=== PATIENT | female | born 1970 | race Caucasian/White ===

== ENCOUNTER 2016-07-06 08:13 | Emergency (ER) | payer MEDICARE ==
[~2016-07-06] VITALS: Ht 167.6 cm; Wt 98.0 kg
[~2016-07-06 08:13] MED LIST: FLEXERIL10 MG OR; LORTAB 7.5 OR; PAXIL10 MG OR
[2016-07-06 08:40] VITALS: BP 153/79
[2016-07-06] MEDS ORDERED: BACTRIM DS1 TAB PO (08:41)
== END 2016-07-06 08:50 | disposition home or self-care (01) ==
LOC: ED 08:13
PROC: 0H91XZZ Drainage of Face Skin, External Approach (ICD-10-PCS; principal; 2016-07-06)
DX: L02.01 Cutaneous abscess of face (principal)

== ENCOUNTER 2016-07-07 10:53 | Emergency (ER) | payer MEDICARE ==
[~2016-07-07] VITALS: Ht 167.6 cm; Wt 95.0 kg
[~2016-07-07 10:53] MED LIST changes: +BACTRIM DS1 TAB PO
[2016-07-07 12:04] VITALS: BP 141/80
== END 2016-07-07 12:04 | disposition home or self-care (01) ==
LOC: ED 10:53
PROC: 0H91XZZ Drainage of Face Skin, External Approach (ICD-10-PCS; principal; 2016-07-07)
DX: L02.01 Cutaneous abscess of face (principal)

== ENCOUNTER 2016-08-16 11:12 | Emergency (ER) | payer MEDICARE ==
[~2016-08-16] VITALS: Ht 167.6 cm; Wt 90.9 kg
[2016-08-16] MEDS ORDERED: NEURONTIN300 MG PO (11:26)
[2016-08-16] MEDS ORDERED: FLEXERIL PO (11:26)
[2016-08-16] MEDS ORDERED: TRAMADOL HCL50 MG PO (11:26)
[2016-08-16] MEDS ORDERED: TRAMADOL HYDROC50 MG PO (11:42)
[2016-08-16] MEDS ORDERED: BACTRIM DS1 TAB PO (11:42)
[2016-08-16 12:11] VITALS: BP 121/71
== END 2016-08-16 12:21 | disposition home or self-care (01) ==
LOC: ED 11:12
PROC: 0H97XZZ Drainage of Abdomen Skin, External Approach (ICD-10-PCS; principal; 2016-08-16)
PROC: 0H96XZZ Drainage of Back Skin, External Approach (ICD-10-PCS; 2016-08-16)
DX: L02.211 Cutaneous abscess of abdominal wall (principal); L02.212 Cutaneous abscess of back [any part, except buttock and flank]; F17.210 Nicotine dependence, cigarettes, uncomplicated; Z86.14 Personal history of Methicillin resistant Staphylococcus aureus infection

== ENCOUNTER 2016-10-31 13:58 | Emergency (ER) | payer MEDICARE ==
[~2016-10-31] VITALS: Ht 167.6 cm; Wt 70.0 kg
[~2016-10-31 13:58] MED LIST changes: +FLEXERIL PO; +NEURONTIN300 MG PO; +TRAMADOL HCL50 MG PO; +TRAMADOL HYDROC50 MG PO
[2016-10-31] MEDS ORDERED: TRAMADOL HYDROC50 MG PO (14:21)
[2016-10-31] MEDS ORDERED: FLEXERIL PO (14:21)
[2016-10-31] MEDS ORDERED: NEURONTIN300 MG PO (14:21)
[2016-10-31 15:05] VITALS: BP 166/99
[2016-10-31] MEDS ORDERED: PREDNISONE50 MG PO (16:20)
[2016-11-01] MEDS ORDERED: PERCOCET 5/325M1 TAB PO (05:15)
== END 2016-10-31 16:33 | disposition home or self-care (01) ==
LOC: ED 13:58
DX: G89.29 Other chronic pain (principal); G62.9 Polyneuropathy, unspecified; M25.512 Pain in left shoulder; M25.522 Pain in left elbow; M79.632 Pain in left forearm; F17.210 Nicotine dependence, cigarettes, uncomplicated
CPT/HCPCS: J2060

== ENCOUNTER 2016-11-01 02:55 | Emergency (ER) | payer MEDICARE ==
[~2016-11-01] VITALS: Ht 167.6 cm; Wt 79.5 kg
[~2016-11-01 02:55] MED LIST changes: +PREDNISONE50 MG PO
[2016-11-01] MEDS ORDERED: PERCOCET 5/325M1 TAB PO (05:15)
[2016-11-01 05:45] VITALS: BP 98/61
== END 2016-11-01 05:45 | disposition home or self-care (01) ==
LOC: ED 02:55
DX: M54.12 Radiculopathy, cervical region (principal); M79.602 Pain in left arm

== ENCOUNTER 2017-01-10 19:06 | Emergency (ER) | payer MEDICARE ==
[~2017-01-10] VITALS: Ht 167.6 cm; Wt 83.2 kg
[~2017-01-10 19:06] MED LIST changes: +PERCOCET 5/325M1 TAB PO
[2017-01-10] MEDS ORDERED: LYRICA25 MG PO (19:36)
[2017-01-10] MEDS ORDERED: BACTRIM DS1 TAB PO (20:21)
[2017-01-10 20:41] VITALS: BP 110/66
== END 2017-01-10 20:58 | disposition home or self-care (01) ==
LOC: ED 19:06
PROC: 0H9DXZZ Drainage of Right Lower Arm Skin, External Approach (ICD-10-PCS; principal; 2017-01-10)
DX: L02.413 Cutaneous abscess of right upper limb (principal); G62.9 Polyneuropathy, unspecified; F17.210 Nicotine dependence, cigarettes, uncomplicated; B95.7 Other staphylococcus as the cause of diseases classified elsewhere

== ENCOUNTER 2017-01-11 21:15 | Emergency (ER) | payer MEDICARE ==
[~2017-01-11] VITALS: Ht 167.6 cm; Wt 83.6 kg
[~2017-01-11 21:15] MED LIST changes: +LYRICA25 MG PO
[2017-01-11 21:58] VITALS: BP 111/60
== END 2017-01-11 21:57 | disposition home or self-care (01) ==
LOC: ED 21:15
DX: L02.415 Cutaneous abscess of right lower limb (principal); F17.210 Nicotine dependence, cigarettes, uncomplicated; G62.9 Polyneuropathy, unspecified; Z86.14 Personal history of Methicillin resistant Staphylococcus aureus infection

== ENCOUNTER 2018-04-22 16:37 | Emergency (ER) | payer MEDICARE ==
[~2018-04-22] VITALS: Ht 167.6 cm; Wt 79.5 kg
[2018-04-22] MEDS ORDERED: TRAMADOL HCL E100 M2 PO (16:50)
[2018-04-22] MEDS ORDERED: MELOXICAM7.5 MG PO (16:51)
[2018-04-22] MEDS ORDERED: CYCLOBENZAPR5 MG PO (16:51)
[2018-04-22] MEDS ORDERED: CLINDAMYCIN300 M1 PO (17:31)
[2018-04-22] MEDS ORDERED: BACTROBAN TOP (17:31)
[2018-04-22 17:47] VITALS: BP 151/90
== END 2018-04-22 17:47 | disposition home or self-care (01) ==
LOC: ED 16:37
DX: L02.01 Cutaneous abscess of face (principal)

== ENCOUNTER 2018-04-23 00:06 | Emergency (ER) | payer MEDICARE ==
[~2018-04-23] VITALS: Ht 167.6 cm; Wt 80.0 kg
[~2018-04-23 00:06] MED LIST changes: +BACTROBAN TOP; +CLINDAMYCIN300 M1 PO; +CYCLOBENZAPR5 MG PO; +MELOXICAM7.5 MG PO; +TRAMADOL HCL E100 M2 PO
[2018-04-23 01:34] LABS: HEMATOCRIT 40.4 % (37.0-47.0); HEMOGLOBIN 13.3 g/dl (12.0-16.0); IMMATURE GRANULOCYTES 0.4 % (0.0-5.0); MEAN CELL VOLUME 85.6 fL CALC (80.0-100.0); MEAN CORPUSCULAR HGB 28.2 pG CALC (26.0-32.0); MEAN CORPUSCULAR HGB CONC 32.9 g/L CALC (32.0-36.0); NEUT# 7.74 thou/uL (2.00-7.15); RED BLOOD COUNT 4.72 mill/uL (4.20-5.60); RED CELL DISTRI WIDTH 14.2 % (11.5-15.5)
[2018-04-23 01:54] LABS: ALBUMIN 3.9 g/dL (3.2-5.0); ALKALINE PHOSPHATASE 57 u/l (38-126); ANION GAP 14 (6-22 (CALC)); BILIRUBIN, TOTAL 0.5 mg/dL (0.0-1.4); BUN 20 mg/dL (7-17); BUN/CREATININE RATIO 37 (12-20 (CALC)); CARBON DIOXIDE 25 mmol/l (22-30); CHLORIDE 101 mmol/l (95-108); CREATININE 0.5 mg/dL (0.5-1.0); GFR > 60 ML/MIN (>=60 (CALC)); GFR FOR AFR.AMER. > 60 ML/MIN (>=60 (CALC)); SGOT/AST 42 u/l (14-36); SODIUM 137 mmol/l (137-146); TOTAL PROTEIN 7.2 g/dL (6.3-8.2)
[2018-04-23 03:50] VITALS: BP 124/74
== END 2018-04-23 03:50 | disposition left against medical advice (07) ==
LOC: ED 00:06
PROVIDERS: Emergency Medicine
DX: L03.211 Cellulitis of face (principal); K11.20 Sialoadenitis, unspecified; D72.829 Elevated white blood cell count, unspecified; F17.210 Nicotine dependence, cigarettes, uncomplicated

== ENCOUNTER 2020-03-04 07:08 | Emergency (ER) | payer MEDICARE ==
[~2020-03-04] VITALS: Ht 167.6 cm; Wt 100.0 kg
[~2020-03-04 07:08] MED LIST changes: -CYCLOBENZAPR5 MG PO; +CYCLOBENZAPRINE10 MG PO
[2020-03-04] MEDS ORDERED: WELLBUTRIN XL300 MG PO (07:44)
[2020-03-04] MEDS ORDERED: NABUMETONE500 MG PO (07:45)
[2020-03-04] MEDS ORDERED: KEFLEX500 MG PO (07:49)
[2020-03-04] MEDS ORDERED: FAMCICLOVIR500 MG PO (07:49)
[2020-03-04 08:07] VITALS: BP 128/79
== END 2020-03-04 08:24 | disposition home or self-care (01) ==
LOC: ED 07:08
DX: B02.9 Zoster without complications (principal); G62.9 Polyneuropathy, unspecified; F17.200 Nicotine dependence, unspecified, uncomplicated

== ENCOUNTER 2021-02-16 07:19 | Day surgery (SDC) | payer MEDICARE ==
[~2021-02-16 07:19] MED LIST changes: +BUSPIRONE10 MG PO; +D350 MCG; +FAMCICLOVIR500 MG PO; +FLUOXETINE10 MG PO; +KEFLEX500 MG PO; +MULTI 50+ PO; +NABUMETONE500 MG PO; +PROBIOTI2; +WELLBUTRIN XL300 MG PO; +XANAX0.25 MG PO
[2021-02-16 09:38] VITALS: BP 124/83
== END 2021-02-16 09:50 | disposition home or self-care (01) ==
LOC: ENDO 07:19
PROVIDERS: ATTEND Surgery
PROC: 0DJD8ZZ Inspection of Lower Intestinal Tract, Via Natural or Artificial Opening Endoscopic (ICD-10-PCS; principal; 2021-02-16)
DX: Z12.11 Encounter for screening for malignant neoplasm of colon (principal); K57.30 Diverticulosis of large intestine without perforation or abscess without bleeding; F17.210 Nicotine dependence, cigarettes, uncomplicated

== ENCOUNTER 2023-05-19 16:47 | Emergency (ER) | payer MEDICARE, MEDICAID ==
[~2023-05-19] VITALS: Ht 165.1 cm; Wt 99.7 kg
[2023-05-19 16:57] VITALS: BP 129/71
[2023-05-19 17:01] VITALS: BP 112/91
[2023-05-19 17:15] VITALS: BP 120/74
[2023-05-19 17:25] LABS: BASO% 0.2 % (0-3); EOS% 1.9 % (0-8); HEMOGLOBIN 12.2 g/dl (12.0-16.0); IMMATURE GRANULOCYTES 0.2 % (0.0-5.0); LYMPH% 26.9 % (15-41); MEAN CELL VOLUME 85.4 fL CALC (80.0-100.0); MEAN CORPUSCULAR HGB 27.4 pG CALC (26.0-32.0); MEAN CORPUSCULAR HGB CONC 32.1 g/dL CAL (32.0-36.0); MONO% 8.2 % (2-13); NEUT# 7.74 thou/uL (2.00-7.15); NEUT% 62.6 % (42-76); RED BLOOD COUNT 4.45 mill/uL (4.20-5.60); RED CELL DISTRI WIDTH 13.1 % (11.5-15.5)
[2023-05-19 17:30] VITALS: BP 101/67
[2023-05-19 17:34] LABS: ALBUMIN 4.1 g/dL (3.2-5.0); ALKALINE PHOSPHATASE 79 u/l (38-126); ANION GAP 12 (6-22 (CALC)); BILIRUBIN, TOTAL 0.3 mg/dL (0.02-1.3); BUN 14 mg/dL (7-17); BUN/CREATININE RATIO 25 (12-20 (CALC)); CARBON DIOXIDE 25 mmol/l (22-30); CHLORIDE 106 mmol/l (95-108); CREATININE 0.6 mg/dL (0.5-1.0); GFR FOR AFR.AMER. > 60 ML/MIN (>=60 (CALC)); GFR OTHER RACES > 60 ML/MIN (>=60 (CALC)); POTASSIUM 3.7 mmol/l (3.5-5.1); SGOT/AST 31 u/l (14-36); SODIUM 139 mmol/l (137-146); TOTAL PROTEIN 7.1 g/dL (6.3-8.2)
[2023-05-19 20:36] VITALS: BP 120/74
[2023-05-19] MEDS ORDERED: CLINDAMYCIN300 M1 PO ×2 (20:38→21:21)
[2023-05-19] MEDS ORDERED: MUPIROCIN21 TOP ×2 (20:38→21:21)
[2023-05-21] MEDS ORDERED: BACTRIM DS1 TAB PO (17:50)
[2023-05-21] MEDS ORDERED: AMOX/K CLAV875 M1 PO (17:50)
== END 2023-05-20 01:41 | disposition home or self-care (01) ==
LOC: ED 16:47
PROVIDERS: Emergency Medicine
DX: L03.213 Periorbital cellulitis (principal); M06.9 Rheumatoid arthritis, unspecified; M50.30 Other cervical disc degeneration, unspecified cervical region; F17.200 Nicotine dependence, unspecified, uncomplicated; Z86.14 Personal history of Methicillin resistant Staphylococcus aureus infection

== ENCOUNTER 2023-05-21 13:45 | Emergency (ER) | payer MEDICARE, MEDICAID ==
[~2023-05-21] VITALS: Ht 165.1 cm; Wt 99.0 kg
[2023-05-21] VITALS (23 sets, daily range): BP systolic 74–133; BP diastolic 44–79
[~2023-05-21 13:45] MED LIST changes: +MUPIROCIN21 TOP
[2023-05-21 15:03] LABS: BASO% 0.3 % (0-3); EOS% 1.3 % (0-8); HEMOGLOBIN 12.1 g/dl (12.0-16.0); IMMATURE GRANULOCYTES 0.2 % (0.0-5.0); LYMPH% 29.4 % (15-41); MEAN CELL VOLUME 86.2 fL CALC (80.0-100.0); MEAN CORPUSCULAR HGB 27.4 pG CALC (26.0-32.0); MEAN CORPUSCULAR HGB CONC 31.8 g/dL CAL (32.0-36.0); MONO% 9.2 % (2-13); NEUT# 8.07 thou/uL (2.00-7.15); NEUT% 59.6 % (42-76); RED BLOOD COUNT 4.41 mill/uL (4.20-5.60); RED CELL DISTRI WIDTH 13.5 % (11.5-15.5)
[2023-05-21 15:23] LABS: ALBUMIN 3.9 g/dL (3.2-5.0); ALKALINE PHOSPHATASE 59 u/l (38-126); ANION GAP 11 (6-22 (CALC)); BILIRUBIN, TOTAL 0.4 mg/dL (0.02-1.3); BUN 9 mg/dL (7-17); BUN/CREATININE RATIO 13 (12-20 (CALC)); CARBON DIOXIDE 28 mmol/l (22-30); CHLORIDE 106 mmol/l (95-108); CREATININE 0.7 mg/dL (0.5-1.0); GFR FOR AFR.AMER. > 60 ML/MIN (>=60 (CALC)); GFR OTHER RACES > 60 ML/MIN (>=60 (CALC)); SGOT/AST 24 u/l (14-36); SODIUM 141 mmol/l (137-146); TOTAL PROTEIN 6.7 g/dL (6.3-8.2)
[2023-05-21] MEDS ORDERED: AMOX/K CLAV875 M1 PO (17:50)
[2023-05-21] MEDS ORDERED: BACTRIM DS1 TAB PO (17:50)
== END 2023-05-21 18:40 | disposition home or self-care (01) ==
LOC: ED 13:45
PROVIDERS: Nurse Practitioner
DX: L03.213 Periorbital cellulitis (principal); B95.62 Methicillin resistant Staphylococcus aureus infection as the cause of diseases classified elsewhere; F17.200 Nicotine dependence, unspecified, uncomplicated
CPT/HCPCS: Q9967